=== PATIENT | male | born 1980 | race Caucasian/White ===

== ENCOUNTER 2018-09-21 11:41 | Emergency (ER) | payer MEDICAID ==
[~2018-09-21] VITALS: Ht 193 cm; Wt 81.2 kg
[~2018-09-21 11:41] MED LIST: RIVA20TA PO
[2018-09-21 11:47] VITALS: BP 153/98
[2018-09-21 12:33] LABS: BASOPHILS # (AUTO) 0.03 x10^3/uL (0-0.1); BASOPHILS % (AUTO) 0 % (0-1); EOSINOPHILS # (AUTO) 0.01 x10^3/uL (0-0.4); EOSINOPHILS % (AUTO) 0 % (1-7); LYMPHOCYTES # (AUTO) 1.12 x10^3/uL (1-3.4); LYMPHOCYTES % (AUTO) 15 % (22-44); MD NO; MEAN CORPUSCULAR HEMOGLOBIN 33.1 pg (27.5-34.5); MEAN CORPUSCULAR HGB CONC 34.3 g/dL (33.2-36.2); MEAN CORPUSCULAR VOLUME 96.5 fL (81-97); MEAN PLATELET VOLUME 7.3 fL (7.4-10.4); MONOCYTES # (AUTO) 0.94 x10^3/uL (0.2-0.8); MONOCYTES % (AUTO) 13 % (2-9); NEUTROPHILS # (AUTO) 5.26 x10^3/uL (1.8-6.8); NEUTROPHILS % (AUTO) 72 % (42-75); PLATELET COUNT 275 x10^3/uL (130-400); RED BLOOD COUNT 5.43 x10^6/uL (4.38-5.82)
[2018-09-21 12:42] LABS: ALBUMIN 4.3 g/dL (3.4-5.0); ANION GAP 9 mmol/L (5-15); CALCIUM 9.6 mg/dL (8.5-10.1); CHLORIDE 103 mmol/L (98-107); CREATININE 1.06 mg/dL (0.7-1.3)
[2018-09-21 12:45] LABS: TROPONIN I < 0.015 ng/mL (0.000-0.045)
--- NOTE | 2018-09-21 15:10 | NUR ---
PT AMBULATORY TO ROOM FROM LOBBY
[2018-09-21] MEDS ORDERED: KETOROLAC 30 MG/1 ML IVPush ONE (15:30)
[2018-09-21] MEDS ORDERED: OMNIPAQUE 350 MG/ML, 100ML BOTTLE ONE (15:45)
[2018-09-21] MEDS ORDERED: KETOROLAC 30 MG/1 ML ONE (15:47)
--- NOTE | 2018-09-21 15:51 | NUR ---
PT TO CT NOW
--- NOTE | 2018-09-21 16:36 | NUR ---
FLOAT RN COVERING MEAL BREAK. PT RESULTS BACK, PT FOR RECHECK.
== END 2018-09-21 18:07 | disposition home or self-care (01) ==
LOC: ED 18:01
DX: R07.89 Other chest pain (principal)
CPT/HCPCS: 36415; 71045; 71275; 80048; 82040; 84484; 85025; 93005; 96374; 99284; J1885; Q9967